=== PATIENT | male | born 1935 | race Caucasian/White ===

== ENCOUNTER → 2016-10-03 | Outpatient (CLI) | payer MEDICARE ==
--- NOTE | 2016-09-29 10:58 | MH ---
cc: AMY BROWN DATE OF ADMISSION 10/03/2016 ADMISSION DIAGNOSIS Cloudy posterior capsule right eye. HISTORY OF PRESENT ILLNESS This 81-year-old white male with a history of low tension glaucoma is status post bilateral cataract surgery with intraocular lens implants and was found to have a cloudy posterior capsule greater in the right eye than the left interfering with his daily activities due to decreased visual acuity. He has therefore elected to have a YAG laser posterior capsulotomy of the right eye at this time. PAST MEDICAL HISTORY The patient has a history of: 1. Hypertension. 2. Prostate problems. 3. Sleep apnea. 4. Cardiac stent. 5. He has also had prostate cancer which has metastasized. PAST SURGICAL HISTORY Includes: 1. Hydrocele. 2. Seed implant. 3. Cardiac stent inserted. 4. Lymph node of the groin which is benign. 5. Skin cancer on the right cheek. 6. Bilateral cataract surgery. MEDICATIONS Daily medications include: 1. Lupron. 2. Bone density shots every 3 months. 3. Citalopram. 4. Clopidogrel. 5. Aspirin. 6. Fenofibrate. 7. Glycopyrrolate. 8. Hydrochlorothiazide. 9. Lisinopril. 10. Loratadine. 11. Leuprolide. 12. Denosumab. 13. Alpha lipoic acid. 14. Calcium plus D. 15. Centrum Silver. 16. Co-Q10. 17. Align. 18. L-lysine. 19. Multiple vitamins. 20. And others. ALLERGIES TERAZOSIN AND SULFAMETHYLDIAZINE, TRIMETHOPRIM WHICH IS TRIMETHOPRIM SULFA. FAMILY HISTORY Positive for father with cataract and father with glaucoma and sons with glaucoma. SOCIAL HISTORY Noncontributory. REVIEW OF SYSTEMS Noncontributory. OCULAR EXAMINATION The patient's visual acuity with correction 20/50 in the right eye and 20/20 in the left. Visual smith are full to confrontation testing. Extraocular muscle exam reveals full versions with orthophoria at distance and near. Pupils are 3 mm equal, round, reactive to light without afferent defect. Anterior segment examination reveals a posterior chamber intraocular lens present bilaterally with a cloudy posterior capsule greater in the right eye than the left. Dermatochalasis of the eyelid skin is present. Intraocular pressure is 14 in the right eye and 10 in the left eye when taking Travatan Z in the left eye. He has since been started on it in both eyes. Dilated fundus exam revealed sharp disk with cup-to-disk ratio 0.8 bilaterally. The macula is clear bilaterally. A posterior vitreous detachment is present bilaterally. There is a laser scar at 4 o'clock in the left fundus. IMPRESSION 1. Cloudy posterior capsule right eye. 2. Pseudophakia both eyes. 3. Low tension glaucoma. 4. Posterior vitreous detachment both eyes. PLAN YAG laser posterior capsulotomy of the right eye through [facility]. MD JO Emery/MALCOLM /5:24 PM /10:54 AM
[~2016-10-03] MED LIST: ACIP20TA19 PO; ALPH200C3 PO; ASCO500C PO; BALANCED SALT SOLN OPHT IRRIG 15 ML BTL ONE; BIOT10004 PO; BRIMONIDINE TARTRATE 0.15% OPHT SOLN 5 ML BTL ONE; CALC500T21 PO; CELE20TA PO; CETI10 PO; CLOP75 PO; CO Q100C9 PO; FENO50TA PO; FLON0.053; FLUOROMETHOLONE 0.25% OPHT SUSP 5 ML BTL ONE; GLYC1TAB27 PO; HYDR-2768 PO; HYPROMELLOSE 0.3 % OPTH GEL 10 GM (0.34 FL OZ) TUBE ONE; L-LY500T4 PO; LISI-363 PO; MAGN250T5 PO; MULT1TAB PO; PHENYLEPHRINE HCL 2.5% OPTH SOLN 2 ML BTL ONE; PROB1TAB PO; PROPARACAINE HCL 0.5% OPHT SOLN 15 ML BTL ONE; ST JTAB PO; TROPICAMIDE 1% OPHT SOLN 15 ML BTL ONE; VITA10004 PO; [UNRECOGNIZED DRUG - OTHER] PO
--- NOTE | 2016-10-05 23:30 | MP ---
cc: AMY TAYLOR DATE OF SURGERY: 10/03/2016 PREOPERATIVE DIAGNOSIS: Cloudy posterior capsule, right POSTOPERATIVE DIAGNOSIS: Cloudy posterior capsule, right eye. OPERATION: YAG laser posterior capsulotomy, right eye. SURGEON: Amy Taylor MD ANESTHESIA: Topical. COMPLICATIONS: None. INDICATIONS: See history and physical previously dictated. PROCEDURE: The patient arrived at [facility]. Blood pressure was 128/55, pulse 55, respirations 16. A drop of Alphagan P and Mydriacyl were instilled in the right eye. The patient was seated at the YAG laser. A drop of Alcaine was instilled in the right eye and a YAG laser posterior capsulotomy lens was placed on the anterior surface of the right cornea. YAG laser posterior capsulotomy was carried out utilizing 57 exposures of 1.7 millijoules. An adequate opening was seen following the procedure. A drop of Alphagan P was instilled topically. The patient was given a prescription for a topical steroid to be used four times per day and has an appointment for follow up on the first postoperative day in my office. The patient left the [facility] in satisfactory condition. MD JO Emery/JESE /12:42 PM /11:07 PM
== END ==
LOC: CSDC 11:19
PROVIDERS: ATTEND Ophthalmology
DX: H26.491 Other secondary cataract, right eye (principal); I10 Essential (primary) hypertension; G47.30 Sleep apnea, unspecified; Z95.5 Presence of coronary angioplasty implant and graft; Z85.46 Personal history of malignant neoplasm of prostate; Z79.82 Long term (current) use of aspirin; Z96.1 Presence of intraocular lens

== ENCOUNTER → 2016-12-26 | Outpatient (CLI) | payer MEDICARE ==
[~2016-12-26] MED LIST changes: -BALANCED SALT SOLN OPHT IRRIG 15 ML BTL ONE; -BRIMONIDINE TARTRATE 0.15% OPHT SOLN 5 ML BTL ONE; -FLUOROMETHOLONE 0.25% OPHT SUSP 5 ML BTL ONE; -HYPROMELLOSE 0.3 % OPTH GEL 10 GM (0.34 FL OZ) TUBE ONE; -PHENYLEPHRINE HCL 2.5% OPTH SOLN 2 ML BTL ONE; -PROPARACAINE HCL 0.5% OPHT SOLN 15 ML BTL ONE; -TROPICAMIDE 1% OPHT SOLN 15 ML BTL ONE
== END ==
LOC: PLAB 10:59
PROVIDERS: ATTEND Urology
DX: C61 Malignant neoplasm of prostate (principal)
CPT/HCPCS: 36415; 84153

== ENCOUNTER → 2017-11-17 | Outpatient (CLI) | payer MEDICARE ==
[2017-11-17 10:01] LABS: ALBUMIN 3.7 GM/DL (3.4-5.0); AST (GOT) 23 U/L (15-37); BICARBONATE 26.4 MEQ/L (21.0-32.0); BLOOD UREA NITROGEN 11 MG/DL (7-18); CHLORIDE 100 MEQ/L (98-107); CREATININE 0.68 MG/DL (0.60-1.30); GLOMERULAR FILTRATION RATE 111 ML/MIN (>89); GLUCOSE,FASTING 91 MG/DL (74-99); SODIUM (NA) 135 MEQ/L (136-145)
[2017-11-17 10:03] LABS: CHOLESTEROL 142 MG/DL (120-200)
[2017-11-17 10:06] LABS: ALKALINE PHOSPHATASE 23 U/L (45-117); ALT (GPT) 15 U/L (12-78); CHOLESTEROL/ HDL RATIO 3.04 RATIO; HDL CHOLESTEROL 46.7 MG/DL (40.0-60.0); LDL CHOLESTEROL 70 MG/DL (0-99); TOTAL BILIRUBIN ADULT 0.5 MG/DL (0.2-1.0); TOTAL PROTEIN 7.6 GM/DL (6.4-8.2); TRIGLYCERIDES 125 MG/DL (42-150)
== END ==
LOC: PLAB 08:08
PROVIDERS: ATTEND Family Medicine
DX: E78.5 Hyperlipidemia, unspecified (principal); I11.9 Hypertensive heart disease without heart failure
CPT/HCPCS: 36415; 80053; 80061

== ENCOUNTER 2018-02-02 10:14 | Emergency (ER) | END 2018-02-02 12:10 | disposition home or self-care (01) | DX: M71.22 Synovial cyst of popliteal space [Baker], left knee (principal); R60.0 Localized edema; I10 Essential (primary) hypertension; E78.00 Pure hypercholesterolemia, unspecified; G47.30 Sleep apnea, unspecified; Z79.01 Long term (current) use of anticoagulants; Z85.46 Personal history of malignant neoplasm of prostate; Z87.19 Personal history of other diseases of the digestive system; Z87.448 Personal history of other diseases of urinary system; Z87.39 Personal history of other diseases of the musculoskeletal system and connective tissue; Z86.69 Personal history of other diseases of the nervous system and sense organs ==

== ENCOUNTER 2018-02-03 19:47 | Emergency (ER) | payer MEDICARE ==
[~2018-02-03] VITALS: Ht 177.8 cm; Wt 81.9 kg
[~2018-02-03 19:47] MED LIST changes: -ACIP20TA19 PO; -ALPH200C3 PO; -ASCO500C PO; +ASPI81CH6 CHEW; -BIOT10004 PO; -CALC500T21 PO; -CELE20TA PO; -CETI10 PO; +CITA20TA4 PO; -CLOP75 PO; +CLOP75TA PO; -CO Q100C9 PO; +DENO120P SQ; +EC-N375T PO; +FENO145T2 PO; -FENO50TA PO; -FLON0.053; -GLYC1TAB27 PO; -HYDR-2768 PO; +HYDR25TA5 PO; -L-LY500T4 PO; +LATA0.002 EACH EYE; -LISI-363 PO; +LISI-515 PO; +LUPR22.5 IM; -MAGN250T5 PO; -MULT1TAB PO; -PROB1TAB PO; +RABE1TAB PO; -ST JTAB PO; -VITA10004 PO; -[UNRECOGNIZED DRUG - OTHER] PO
[2018-02-03 19:54] VITALS: BP 146/66; PULSE 66; RESP 20; TEMP 101.7; O2SAT 96
[2018-02-03 19:59] VITALS: BP 146/66; PULSE 66; RESP 20; TEMP 101.7; O2SAT 96
--- NOTE | 2018-02-03 20:51 | RADRPT ---
EXAM DATE/TIME: 02/03/2018 20:37 [place] COMPARISON: No previous studies available for comparison. INDICATIONS : Fever MEDICAL HISTORY : Carcinoma, prostatic. Hypertension SURGICAL HISTORY : Prostatectomy. Stents. Carpal tunnel ssurgery. ENCOUNTER: Initial ACUITY: 1 week PAIN SCORE: 0/10 LOCATION: Bilateral chest FINDINGS: A single view of the chest demonstrates the lungs to be symmetrically aerated without evidence of mas s, infiltrate or effusion. The cardiomediastinal contours are unremarkable. Osseous structures are intact. CONCLUSION: No acute disease. Simón Poe MD on February 03, 2018 at 20:49 Board Certified Radiologist. This report was verified electronically.
[2018-02-03 21:01] LABS: BILIRUBIN, URINE NEG (NEG); BLOOD, URINE NEG (NEG); GLUCOSE,URINE NEG (NEG); KETONE, URINE NEG (NEG); NITRITE,URINE NEG (NEG); URINE COLOR YELLOW (YELLW/STRAW); URINE LEUKOCYTE ESTERASE NEG (NEG)
[2018-02-03 21:09] LABS: AUTOMATED NEUTROPHIL # 4.1 TH/MM3 (1.8-7.7); BASOPHIL % 0.2 % (0.0-2.0); EOSINOPHIL # 0.1 TH/MM3 (0-0.4); EOSINOPHIL % 1.3 % (0.0-4.0); HEMATOCRIT 26.8 % (39.0-51.0); HEMOGLOBIN 9.4 GM/DL (13.0-17.0); LYMPH % 13.7 % (9.0-44.0); LYMPHOCYTE # 0.8 TH/MM3 (1.0-4.8); MEAN CELL VOLUME 95.7 FL (80.0-100.0); MEAN CORPUSCULAR HEMOGLOBIN 33.7 PG (27.0-34.0); MEAN CORPUSCULAR HGB CONC 35.3 % (32.0-36.0); MEAN PLATELET VOLUME 9.4 FL (7.0-11.0); MONO % 12.2 % (0.0-8.0); MONOCYTE # 0.7 TH/MM3 (0-0.9); NEUT % 72.6 % (16.0-70.0); PLATELET COUNT 211 TH/MM3 (150-450); RED CELL DISTRIBUTION WIDTH 12.9 % (11.6-17.2); WHITE BLOOD COUNT 5.7 TH/MM3 (4.0-11.0)
[2018-02-03 21:27] LABS: AMORPHOUS SEDIMENT, URINE FEW; RBC, URINE 0-3 /hpf (0-3); SQUAMOUS EPITHELIAL CELL URINE 0-5 /hpf (0-5); WBC, URINE 0-2 /hpf (0-5)
[2018-02-03 21:39] VITALS: BP 133/81; PULSE 68; RESP 16; TEMP 98.9; O2SAT 97
[2018-02-03] MEDS ORDERED: CLIN150C14 PO (22:02)
--- NOTE | 2018-02-03 22:05 | PD ---
HPI Chief Complaint: Fever Time Seen by Provider: 20:32 Travel History International Travel<30 days: No Contact w/Intl Traveler<30days: No Traveled to known affect area: No History of Present Illness HPI Patient evaluated in the emergency room 2-3 days ago for left lower extremity edema. Patient reports ultrasound was ruled out. Presents this evening with concerns of fever. Denies any nausea vomiting or diarrhea. Denies any new chest pain shortness of breath urinary or bowel symptoms. Taking fluids well. Denies any sick contacts. PFSH Past Medical History Hx Anticoagulant Therapy: Yes (PLAVIX) Cancer: Yes (Prostate, skin ) High Cholesterol: Yes Chest Pain: No Diabetes: No Endocrine: No Gastrointestinal Disorders: Yes (HX ULCERS, GERD) Glaucoma: No Genitourinary: Yes (PROSTATE CA -- RADIATION 2000, SEED IMPLANT, LEAKING URINE POST) Hepatitis: No Hiatal Hernia: Yes Hypertension: Yes Immune Disorder: No Medical other: Yes (ROSACEA) Musculoskeletal: Yes (ARTHRITIS, BACK PAIN) Neurologic: Yes (PERIPHERAL NEUROPATHY (FEET)) Psychiatric: Yes (ANXIETY) Reproductive: No Respiratory: Yes (SLEEP APNEA/ CPAP) Integumentary: No Thyroid Disease: No Tetanus Vaccination: < 5 Years Past Surgical History Abdominal Surgery: No AICD: No Body Medical Devices: Cardiac stents, radiation seeds Cardiac Surgery: Yes (Stents) Ear Surgery: No Endocrine Surgery: No Eye Surgery: No Genitourinary Surgery: Yes (Prostate seeds, vasectomy ) Gynecologic Surgery: No Joint Replacement: No Oral Surgery: Yes (T&A) Pacemaker: No Thoracic Surgery: No Other Surgery: Yes (Lymph node removal , trigger finger release ) Social History Alcohol Use: No Tobacco Use: No Substance Use: No Allergies-Medications (Allergen,Severity, Reaction): Coded Allergies: Sulfa (Sulfonamide Antibiotics) (Unverified Allergy, Severe, 02/03/18) terazosin (Unverified Allergy, Severe, 02/03/18) Reported Meds & Prescriptions Reported Meds & Active Scripts Active Clindamycin (Clindamycin HCl) 150 Mg Cap 300 Mg PO TID EC-Naprosyn (Naproxen) 375 Mg Tabdr 375 Mg PO BID Reported Rabeprazole (Rabeprazole Sodium) 20 Mg Tab 20 Mg PO DAILY Lisinopril 20 Mg Tab 20 Mg PO DAILY Lupron Depot Inj Kit (Leuprolide (3 Month) Inj Kit) 22.5 Mg Kit 22.5 Mg IM Q84D Latanoprost Opth Drops (Latanoprost) 0.005% Drops 1 Drop EACH EYE HS Refrigerate until opened. Hydrochlorothiazide 25 Mg Tab 25 Mg PO DAILY Fenofibrate 145 Mg Tab 145 Mg PO DAILY Aspirin Low Dose (Aspirin) 81 Mg Chew 81 Mg CHEW DAILY Xgeva Inj (Denosumab) 120 Mg/1.7 Ml (70 Mg/Ml) Inj 120 Mg SQ [id number] Clopidogrel (Clopidogrel Bisulfate) 75 Mg Tab 75 Mg PO DAILY Citalopram (Citalopram Hydrobromide) 20 Mg Tab 20 Mg PO DAILY Review of Systems General / Constitutional: Positive: Fever Eyes: No: Visual changes HENT: No: Headaches Cardiovascular: No: Chest Pain or Discomfort Respiratory: No: Shortness of Breath Gastrointestinal: No: Abdominal Pain Genitourinary: No: Dysuria Musculoskeletal: No: Pain Skin: No Rash Neurologic: No: Weakness Psychiatric: No: Depression Endocrine: No: Polydipsia Hematologic/Lymphatic: No: Easy Bruising Physical Exam Narrative GENERAL: Well-nourished, well-developed patient. SKIN: Focused skin assessment warm/dry. HEAD: Normocephalic. EYES: No scleral icterus. No injection or drainage. NECK: Supple, trachea midline. No JVD or lymphadenopathy. CARDIOVASCULAR: Regular rate and rhythm without murmurs, gallops, or rubs. RESPIRATORY: Breath sounds equal bilaterally. No accessory muscle use. GASTROINTESTINAL: Abdomen soft, non-tender, nondistended. MUSCULOSKELETAL: No cyanosis, or edema. BACK: Nontender without obvious deformity. No CVA tenderness. Left lower extremity is edema and tenderness of the tibial aspect with mild erythema, no drainage or weepage Data Data Last Documented VS Vital Signs Date Time Temp Pulse Resp B/P (MAP) Pulse Ox O2 Delivery O2 Flow Rate FiO2 02/03/18 22:15 02/03/18 21:39 98.9 68 16 97 Room Air Orders Orders Urinalysis - C+S If Indicated (02/03/18 20:32) Complete Blood Count With Diff (02/03/18 20:32) Chest, Single Ap (02/03/18 ) Clindamycin Inj (Cleocin Inj) (02/03/18 22:15) Labs Laboratory Tests Test 02/03/18 20:47 White Blood Count 5.7 TH/MM3 Red Blood Count 2.80 MIL/MM3 Hemoglobin 9.4 GM/DL Hematocrit 26.8 % Mean Corpuscular Volume 95.7 FL Mean Corpuscular Hemoglobin 33.7 PG Mean Corpuscular Hemoglobin Concent 35.3 % Red Cell Distribution Width 12.9 % Platelet Count 211 TH/MM3 Mean Platelet Volume 9.4 FL Neutrophils (%) (Auto) 72.6 % Lymphocytes (%) (Auto) 13.7 % Monocytes (%) (Auto) 12.2 % Eosinophils (%) (Auto) 1.3 % Basophils (%) (Auto) 0.2 % Neutrophils # (Auto) 4.1 TH/MM3 Lymphocytes # (Auto) 0.8 TH/MM3 Monocytes # (Auto) 0.7 TH/MM3 Eosinophils # (Auto) 0.1 TH/MM3 Basophils # (Auto) 0.0 TH/MM3 CBC Comment DIFF FINAL Differential Comment Urine Color YELLOW Urine Turbidity CLEAR Urine pH 8.0 Urine Specific Bozman 1.010 Urine Protein TRACE mg/dL Urine Glucose (UA) NEG mg/dL Urine Ketones NEG mg/dL Urine Occult Blood NEG Urine Nitrite NEG Urine Bilirubin NEG Urine Urobilinogen 0.2 MG/DL Urine Leukocyte Esterase NEG Urine RBC 0-3 /hpf Urine WBC 0-2 /hpf Urine Squamous Epithelial Cells 0-5 /hpf Urine Amorphous Sediment FEW Microscopic Urinalysis Comment CULT NOT INDICATED MDM Medical Decision Making Medical Screen Exam Complete: Yes Emergency Medical Condition: Yes Differential Diagnosis Fever of unknown origin, UTI, cellulitis, viral infection Narrative Course Assessment plan discussed the patient at bedside. Urinalysis and CBC within normal limits. Last 72 hours Impressions Chest X-Ray 02/03/18 0000 Signed Impressions: Service Date/Time: Saturday, February 03, 2018 20:37 - CONCLUSION: No acute disease. Simón Poe MD Diagnosis Primary Impression: Cellulitis and abscess of left leg Additional Impression: Fever Qualified Codes: R50.9 - Fever, unspecified Patient Instructions: General Instructions Additional Instructions: Antibiotics as prescribed, left lower extremity elevated, Tylenol or Motrin for fever, follow-up with PCP, return to emerge from with any onset of new symptoms. Med/Other Pt SpecificInfo: Prescription(s) given Scripts Clindamycin (Clindamycin) 150 Mg Cap 300 MG PO TID for Infection, #60 CAP 0 Refills Prov: Mook Umanzor MD 02/03/18 Disposition: 01 DISCHARGE HOME Condition: Good Mook Umanzor MD February 03, 2018 22:05
[2018-02-03] MEDS ORDERED: CLINDAMYCIN PHOS 600 MG/4 ML VIAL IM ONE (22:15)
== END 2018-02-03 22:56 | disposition home or self-care (01) ==
LOC: PHED 19:47
DX: L02.416 Cutaneous abscess of left lower limb (principal); L03.116 Cellulitis of left lower limb; R50.9 Fever, unspecified; E78.00 Pure hypercholesterolemia, unspecified; K21.9 Gastro-esophageal reflux disease without esophagitis; I10 Essential (primary) hypertension; G47.30 Sleep apnea, unspecified; R60.0 Localized edema
CPT/HCPCS: 71045; 81001; 85025; 96372

== ENCOUNTER 2018-06-18 12:19 | Inpatient (IN) ==
--- NOTE | 2018-06-18 13:38 | ED ---
HPI General Chief Complaint: Recheck/Abnormal Lab/Rx Stated Complaint: doctor sent Time Seen by Provider: 06/18/18 13:12 Source: patient Mode of arrival: ambulatory Limitations: no limitations History of Present Illness HPI narrative: 83-year-old male with PMH of CAD status post stenting, prostate cancer on Plavix presents to the ED for evaluation of 2-day history of dyspnea on exertion. Patient states that when he woke up yesterday he felt a little dizzy. He sat on the side of the bed for a few moments, dizziness resolved and he was able to go about his normal activities. He states that he has had intermittent "some kind of feeling in my chest" and palpitations. No chest discomfort currently. He denies nausea, vomiting, diaphoresis. He denies headache, vision changes, fever, chills, cough, changes in bowel habits, dysuria , unilateral weakness, difficulties with speech, recent period of immobilization , cigarette smoking. He states that he swims 80+ laps daily, has not swam in the last couple days. He states that he went to a checkup with Dr. Garces is today and was sent for further evaluation. Related Data Home Medications Medication Instructions Recorded Confirmed aspirin [Aspir-81] 81 mg PO DAILY 06/18/18 06/18/18 cholecalciferol (vitamin D3) 50,000 unit PO QWEEK 06/18/18 06/18/18 [Vitamin D3] citalopram 20 mg PO DAILY 06/18/18 06/18/18 clopidogrel 75 mg PO DAILY 06/18/18 06/18/18 denosumab 120 mg SUBCUT Q4W 06/18/18 06/18/18 fenofibrate 150 mg PO DAILY 06/18/18 06/18/18 hydrochlorothiazide 25 mg PO DAILY 06/18/18 06/18/18 loratadine 10 mg PO DAILY 06/18/18 06/18/18 losartan 50 mg PO DAILY 06/18/18 06/18/18 rabeprazole 20 mg PO DAILY 06/18/18 06/18/18 Allergies Allergy/AdvReac Type Severity Reaction Status Date / Time Sulfa (Sulfonamide Allergy Severe Fainting Verified 06/18/18 13:06 Antibiotics) terazosin Allergy Severe Burning Verified 06/18/18 13:06 Review of Systems ROS: all other systems reviewed are negative [facility] Medical History Medical History Anemia (Acute) Hypercholesteremia (Acute) Hypertension (Acute) Prostate cancer (Acute) Surgical History Surgical History Hx of cardiac catheterization (Acute) Hx of heart artery stent (Acute) Social History Social History Substance History: No History of Abuse Smoking Status: Former smoker How Often Do You Have a Drink Containing Alcohol: Never Recent Travel in [facility] within the Last 8 Weeks: No Recent Out of Country Travel within the Last 8 Weeks: No Immunization History Tetanus Immunization: <5 Years Hx Influenza Vaccine This Season: Yes Exam Narrative Exam Narrative: GENERAL: Well-nourished, well-developed, pleasant white male in no acute distress. SKIN: Focused skin assessment warm/dry. HEAD: Atraumatic. Normocephalic. EYES: Pupils equal and round. No scleral icterus. No injection or drainage. ENT: No nasal bleeding or discharge. Mucous membranes pink and moist. NECK: Trachea midline. No JVD. CARDIOVASCULAR: Irregular rate and rhythm. No murmur appreciated. RESPIRATORY: No accessory muscle use. Clear to auscultation. Breath sounds equal bilaterally. GASTROINTESTINAL: Abdomen soft, non-tender, nondistended. Hepatic and splenic margins not palpable. MUSCULOSKELETAL: No obvious deformities. No clubbing. No cyanosis. No edema. NEUROLOGICAL: Awake and alert. No obvious cranial nerve deficits. Motor grossly within normal limits. Normal speech. PSYCHIATRIC: Appropriate mood and affect; insight and judgment normal. Course Initial Documented Vital Signs Temperature 98.0 F 06/18/18 12:34 Pulse Rate 41 L 06/18/18 12:34 Respiratory Rate 16 06/18/18 12:34 Blood Pressure 183/77 H 06/18/18 12:34 Pulse Oximetry 100 06/18/18 12:34 Last Documented Vital Signs Temperature 98.2 F 06/18/18 16:54 Pulse Rate 35 L 06/18/18 16:54 Respiratory Rate 16 06/18/18 16:30 Blood Pressure 134/76 06/18/18 16:54 Pulse Oximetry 98 06/18/18 16:30 Medical Decision Making MDM Narrative Medical decision making narrative: 83-year-old male with PMH of CAD status post stenting, prostate cancer on Plavix presents to the ED for evaluation of 2-day history of dyspnea on exertion. Patient endorses palpitations, no chest discomfort on arrival. Vitals reviewed. Heart rate between 40 and mid 50s. EKG concerning for third-degree heart block. CTA with no evidence of PE. Dr. Treadwell spoke with Dr. Garces who requested the patient be admitted to the hospital, plans pacemaker insertion tomorrow. I discussed this plan with the patient who is agreeable. I spoke with Dr. Lester who agrees to accept the patient to the medicine service. Please see medicine and cardiac notes for disposition. Medical Screen Exam Complete: Yes Emergency Medical Condition: Yes Differential Diagnosis Differential Diagnosis: heart block versus ACS versus CHF versus PE versus Lab Data Result diagrams: 06/18/18 13:21 06/18/18 13:21 Lab Results 06/18/18 06/18/18 06/18/18 Range/Units 13:21 13:21 13:21 WBC 4.9 (4.0-11.0) th/mm3 RBC 3.43 L (4.50-5.90) mil/mm3 Hgb 11.4 L (13.0-17.0) gm/dL Hct 33.8 L (39.0-51.0) % MCV 98.5 (80.0-100.0) fL MCH 33.3 (27.0-34.0) pg MCHC 33.8 (32.0-36.0) % RDW 12.8 (11.6-17.2) % Plt Count 227 (150-450) th/mm3 MPV 10.1 (7.0-11.0) fL Neut % (Auto) 61.8 (16.0-70.0) % Lymph % (Auto) 23.9 (9.0-44.0) % Eddy % (Auto) 12.7 H (0.0-8.0) % Eos % (Auto) 1.2 (0.0-4.0) % Baso % (Auto) 0.4 (0.0-2.0) % Neut # (Auto) 3.0 (1.8-7.7) th/mm3 Lymph # (Auto) 1.2 (1.0-4.8) th/mm3 Eddy # (Auto) 0.6 (0.0-0.9) th/mm3 Eos # (Auto) 0.1 (0.0-0.4) th/mm3 Baso # (Auto) 0.0 (0.0-0.2) th/mm3 WBC Differential . Differential Comment Auto diff final PT (9.8-11.6) sec INR Ratio D-Dimer Quant (PE/DVT) 0.39 (0.00-0.50) mg/L FEU Sodium 136 (136-145) meq/L Potassium 3.6 (3.5-5.1) meq/L Chloride 103 (98-107) meq/L Carbon Dioxide 23.8 (21.0-32.0) meq/L Anion Gap 9 (5-15) meq/L BUN 19 H (7-18) mg/dL Creatinine 0.92 (0.60-1.30) mg/dL Estimated GFR 78 L (>89) mL/min Random Glucose 103 (74-106) mg/dL Calcium 9.4 (8.5-10.1) mg/dL Total Bilirubin 0.4 (0.2-1.0) mg/dL AST 19 (15-37) U/L ALT 18 (12-78) U/L Alkaline Phosphatase 22 L (45-117) U/L Troponin I 0.02 (0.02-0.05) ng/mL B-Natriuretic Peptide (0-100) pg/mL Total Protein 7.7 (6.4-8.2) g/dL Albumin 3.5 (3.4-5.0) g/dL Urine Color (Yellw/Straw) Urine Clarity (Clear) Urine pH (5.0-8.5) Ur Specific [place] (1.002-1.035) Urine Protein (Neg-Trace) mg/dL Urine Glucose (UA) (Negative) mg/dL Urine Ketones (Negative) mg/dL Urine Occult Blood (Negative) Urine Nitrate (Negative) Urine Bilirubin (Negative) Urine Urobilinogen (Less than 2) mg/dL Ur Leukocyte Esterase (Negative) Urine RBC (0-3) /hpf Urine WBC (0-5) /hpf Micro UA Comment Ur Microscopic Review Urine Culture Comments 06/18/18 06/18/18 06/18/18 Range/Units 13:21 13:21 14:07 WBC (4.0-11.0) th/mm3 RBC (4.50-5.90) mil/mm3 Hgb (13.0-17.0) gm/dL Hct (39.0-51.0) % MCV (80.0-100.0) fL MCH (27.0-34.0) pg MCHC (32.0-36.0) % RDW (11.6-17.2) % Plt Count (150-450) th/mm3 MPV (7.0-11.0) fL Neut % (Auto) (16.0-70.0) % Lymph % (Auto) (9.0-44.0) % Eddy % (Auto) (0.0-8.0) % Eos % (Auto) (0.0-4.0) % Baso % (Auto) (0.0-2.0) % Neut # (Auto) (1.8-7.7) th/mm3 Lymph # (Auto) (1.0-4.8) th/mm3 Eddy # (Auto) (0.0-0.9) th/mm3 Eos # (Auto) (0.0-0.4) th/mm3 Baso # (Auto) (0.0-0.2) th/mm3 WBC Differential Differential Comment PT 10.9 (9.8-11.6) sec INR 1.1 Ratio D-Dimer Quant (PE/DVT) (0.00-0.50) mg/L FEU Sodium (136-145) meq/L Potassium (3.5-5.1) meq/L Chloride (98-107) meq/L Carbon Dioxide (21.0-32.0) meq/L Anion Gap (5-15) meq/L BUN (7-18) mg/dL Creatinine (0.60-1.30) mg/dL Estimated GFR (>89) mL/min Random Glucose (74-106) mg/dL Calcium (8.5-10.1) mg/dL Total Bilirubin (0.2-1.0) mg/dL AST (15-37) U/L ALT (12-78) U/L Alkaline Phosphatase (45-117) U/L Troponin I (0.02-0.05) ng/mL B-Natriuretic Peptide 492 H (0-100) pg/mL Total Protein (6.4-8.2) g/dL Albumin (3.4-5.0) g/dL Urine Color Yellow (Yellw/Straw) Urine Clarity Clear (Clear) Urine pH 7.0 (5.0-8.5) Ur Specific [place] 1.005 (1.002-1.035) Urine Protein Negative (Neg-Trace) mg/dL Urine Glucose (UA) Negative (Negative) mg/dL Urine Ketones Negative (Negative) mg/dL Urine Occult Blood Negative (Negative) Urine Nitrate Negative (Negative) Urine Bilirubin Negative (Negative) Urine Urobilinogen Less than 2 (Less than 2) mg/dL Ur Leukocyte Esterase Negative (Negative) Urine RBC Less than 1 (0-3) /hpf Urine WBC 1 (0-5) /hpf Micro UA Comment Culture not ind Ur Microscopic Review Not Reportable Urine Culture Comments Culture not ind Imaging Data Radiologist's impression: Chest X-Ray 06/18/18 13:13 CONCLUSION: No acute cardiopulmonary disease. Chest CTA 06/18/18 13:15 CONCLUSION: 1. Negative for central pulmonary emboli. Discharge Plan Discharge Disposition Patient Disposition: 30 Still Patient Physicians Team ED Provider: Rob Treadwell ED Midlevel Provider: Jeri Hicks Primary Care Provider: Holland Loza Attending Provider: Samm Lester Other Providers: Dylan Garces Discharge Interventions Interventions: ED Discharge Assessment Last Done: 06/18/18 16:47 Vital Signs Last Done: 06/18/18 16:54 Status ED Status: Admitted Patient
[2018-06-18 13:51] LABS: Baso % (Auto) 0.4 % (0.0-2.0); Eos # (Auto) 0.1 th/mm3 (0.0-0.4); Eos % (Auto) 1.2 % (0.0-4.0); Hematocrit 33.8 % (39.0-51.0); Hemoglobin 11.4 gm/dL (13.0-17.0); Lymph # (Auto) 1.2 th/mm3 (1.0-4.8); Lymph % (Auto) 23.9 % (9.0-44.0); Mean Corpuscular HGB Conc 33.8 % (32.0-36.0); Mean Corpuscular Hemoglobin 33.3 pg (27.0-34.0); Mean Corpuscular Volume 98.5 fL (80.0-100.0); Mean Platelet Volume 10.1 fL (7.0-11.0); Mono # (Auto) 0.6 th/mm3 (0.0-0.9); Mono % (Auto) 12.7 % (0.0-8.0); Neut % (Auto) 61.8 % (16.0-70.0); Platelet Count 227 th/mm3 (150-450); Red Blood Count 3.43 mil/mm3 (4.50-5.90); Red Cell Distribution Width 12.8 % (11.6-17.2); White Blood Count 4.9 th/mm3 (4.0-11.0)
[2018-06-18 14:08] LABS: INR 1.1 Ratio; Prothrombin Time 10.9 sec (9.8-11.6)
--- NOTE | 2018-06-18 14:08 | XR ---
EXAM DATE: 06/18/2018 1:13 PM EDT AGE/SEX: 83 years / Male INDICATIONS: Short of breath and dizziness. CLINICAL DATA: This is the patient's initial encounter. Patient reports that signs and symptoms have been present for 2 days and indicates a pain score of 0/10. MEDICAL/SURGICAL HISTORY: None. None. COMPARISON: PO, CHEST SINGLE AP, 02/03/2018. . FINDINGS: A single AP view of the chest demonstrates the lungs to be symmetrically aerated without evidence of mass, infiltrate or effusion. The cardiomediastinal contours are unremarkable. Osseous structures a re intact. CONCLUSION: No acute cardiopulmonary disease. Electronically signed by: Magan Moreno MD 06/18/2018 2:07 PM EDT
[2018-06-18 14:14] LABS: Albumin 3.5 g/dL (3.4-5.0); Anion Gap 9 meq/L (5-15); Aspartate Aminotransferase 19 U/L (15-37); Blood Urea Nitrogen 19 mg/dL (7-18); Calcium 9.4 mg/dL (8.5-10.1); Carbon Dioxide 23.8 meq/L (21.0-32.0); Chloride 103 meq/L (98-107); Glomerular Filtration Rate 78 mL/min (>89); Glucose,Random 103 mg/dL (74-106); Potassium 3.6 meq/L (3.5-5.1); Sodium 136 meq/L (136-145)
[2018-06-18 14:16] LABS: Alanine Aminotransferase 18 U/L (12-78)
[2018-06-18 14:20] LABS: Alkaline Phosphatase 22 U/L (45-117); Total Protein 7.7 g/dL (6.4-8.2); Troponin I 0.02 ng/mL (0.02-0.05)
[2018-06-18 14:33] LABS: Bilirubin,Urine Negative (Negative); Clarity,Urine Clear (Clear); Color,Urine Yellow (Yellw/Straw); Glucose,Urine (UA) Negative (Negative); Leukocyte Esterase,Urine Negative (Negative); Nitrite,Urine Negative (Negative); Specific Gravity,Urine 1.005 (1.002-1.035)
--- NOTE | 2018-06-18 15:21 | CT ---
EXAM DATE: 06/18/2018 2:41 PM EDT AGE/SEX: 83 years / Male INDICATIONS: Shortness of breath. History of prostate cancer. CLINICAL DATA: This is the patient's initial encounter. Patient reports that signs and symptoms have been present for 1 day and indicates a pain score of 5/10. MEDICAL/SURGICAL HISTORY: Hypertension. Cardiovascular disease. None. RADIATION DOSE: 18.18 CTDI (mGy) COMPARISON: No prior exams available for comparison. TECHNIQUE: Volumetric scanning was performed using a multi-row detector CT scanner during bolus infu leslie of 74 ml Omnipaque 350 (iohexol) nonionic water-soluble contrast as a single exam dose. The nikko a was post processed with a variety of visualization algorithms including full volume maximum intensi ty projection and sliding thin slab reformation. Using automated exposure control and adjustment of t he mA and/or kV according to patient size, radiation dose was kept as low as reasonably achievable to obtain optimal diagnostic quality images. DICOM format image data is available electronically for r eview and comparison. FINDINGS: Pulmonary Arteries: No filling defects are seen in the pulmonary arteries out to the subsegmental ve ssels. The left and right pulmonary arteries are normal in diameter. Lung: No infiltrates seen. Effusion: None. Mediastinum: No evidence of mediastinal or hilar adenopathy. Apparent LAD stent. Other: The axilla is unremarkable. Upper abdominal contents unremarkable. CONCLUSION: 1. Negative for central pulmonary emboli. Electronically signed by: Corby Phillips MD 06/18/2018 3:19 PM EDT
[2018-06-18] MEDS ORDERED: Bisacodyl 10 MG Supp RECTAL PRN (15:55)
[2018-06-18] MEDS ORDERED: Chlorhexidine Gluconate 2% 1 Pack (2 Cloths) TOPICAL SCH (18:00)
[2018-06-18] MEDS ORDERED: Vancomycin Inj 1,000 MG in Sodium Chlor 0.9% Inj 250 ML IV.SIG SCH (18:00)
[2018-06-18] MEDS ORDERED: Mupirocin 2% Nasal Oint Topical Syringe EACH NARE SCH (18:00)
[2018-06-18] MEDS ORDERED: ceFAZolin 2 GM Premix Inj 2 GM/50 ML PIGGYBACK IV.SIG SCH (18:00)
--- NOTE | 2018-06-18 18:18 | P.CONCA ---
History of Present Illness Service: Cardiology Reason for Consult: Heart block Primary Care Provider: Holland Loza MD History of Present Illness: Pleasant 83-year-old male well-known to our practice, with a past cardiac history of ASHD with stent to the LAD and RCA, hyperlipidemia, V. tach, bradycardia, right bundle branch block, and hypertension. He also has metastatic prostate cancer and is followed by Dr. Graham. He had a nuclear stress test in September 1999 18+ moderate risk study. Patient denied any chest pain. Patient presented to office this AM with complaints dizziness, fatigue and SOB. He reports that symptoms started yesterday when he woke up, felt very dizzy, lightheaded, and short of breath. Reports having significant shortness of breath when walking across the parking lot today. EKG showed heart block, pt was sent to ER. Patient had CTA in the ER that ruled out pulmonary embolus. All options discussed in detail with patient, will plan to proceed with pacemaker placement tomorrow morning. Patient understands the risk of procedure and has elected to go forward. Review of Systems Constitutional: Reports lack of energy, Reports weakness Cardiovascular: Reports shortness of breath, Reports shortness of breath with activity Respiratory: Reports shortness of breath Musculoskeletal: Reports muscle weakness Neurologic: Reports dizziness, Reports weakness PMFSH - History History Provided By: Patient - Medical History Medical History: Medical History (Last Reviewed 06/18/18 @ 17:17 by FABIOLA Alberto) Anemia Hypercholesteremia Hypertension Prostate cancer - Surgical History Surgical History: Surgical History (Last Reviewed 06/18/18 @ 17:17 by FABIOLA Alberto) Hx of cardiac catheterization Hx of heart artery stent - Tobacco History Tobacco Use In Past 30 Days: No Smoking Status: Former smoker - Alcohol History How Often Do You Have a Drink Containing Alcohol: Never - Substance Use History Substance History: No History of Abuse - Travel History Recent Travel in the [place] Within the Last 8 Weeks: No Recent Travel Out of the Country Within the Last 8 Weeks: No - Immunization History Tetanus Immunization: <5 Years Hx Influenza Vaccine This Season: Yes Medications and Allergies Allergies Allergy/AdvReac Type Severity Reaction Status Date / Time Sulfa (Sulfonamide Allergy Severe Fainting Verified 06/18/18 13:06 Antibiotics) terazosin Allergy Severe Burning Verified 06/18/18 13:06 Home Medications Medication Instructions Recorded Confirmed Type aspirin [Aspir-81] 81 mg PO DAILY 06/18/18 06/18/18 History cholecalciferol (vitamin D3) 50,000 unit PO QWEEK 06/18/18 06/18/18 History [Vitamin D3] citalopram 20 mg PO DAILY 06/18/18 06/18/18 History clopidogrel 75 mg PO DAILY 06/18/18 06/18/18 History denosumab 120 mg SUBCUT Q4W 06/18/18 06/18/18 History fenofibrate 150 mg PO DAILY 06/18/18 06/18/18 History hydrochlorothiazide 25 mg PO DAILY 06/18/18 06/18/18 History loratadine 10 mg PO DAILY 06/18/18 06/18/18 History losartan 50 mg PO DAILY 06/18/18 06/18/18 History rabeprazole 20 mg PO DAILY 06/18/18 06/18/18 History Active Medications: Active Medications Al Hydroxide/Mg Hydroxide (Milk Of Magnesia Liq) 30 ml PO Q12H PRN PRN Reason: Mild Constipation Bisacodyl (Dulcolax Supp) 10 mg RECTAL DAILY PRN PRN Reason: SEVERE CONSITIPATION Chlorhexidine Gluconate (Chlorhexidine 2% Cloth) 3 pack TOPICAL PATHOLOGY TECHNICIAN [facility] Stop: 06/21/18 17:59 Citalopram Hydrobromide (Celexa) 20 mg PO DAILY [facility] Enalaprilat (Vasotec Inj) 1.25 mg IV.PUSH Q6H PRN PRN Reason: SBP>160, DBP>90 Fenofibrate (Tricor) 145 mg PO DAILY [facility] Cefazolin Sodium/Dextrose (Ancef 2 Gm Premix Inj) 2 gm in 50 mls @ 100 mls/hr IV.SIG PATHOLOGY TECHNICIAN [facility] Stop: 06/21/18 18:01 Sodium Chloride (Ns Inj) 1,000 mls @ 30 mls/hr IV.CONT .Q24H [facility] Vancomycin HCl 1,000 mg/ (Sodium Chloride) 250 mls @ 250 mls/hr IV.SIG PATHOLOGY TECHNICIAN [facility] Stop: 06/21/18 18:01 Lactulose (Lactulose Liq) 30 ml PO DAILY PRN PRN Reason: SEVERE CONSITIPATION Losartan Potassium (Cozaar) 50 mg PO DAILY [facility] Mupirocin (Bactroban 2% Nasal Oint) 1 applicatio EACH NARE PATHOLOGY TECHNICIAN [facility] Stop: 06/21/18 17:59 Pantoprazole Sodium (Protonix) 40 mg PO DAILY [facility] Povidone Iodine (Betadine 5% Antisepsis Kit) 1 applicatio EACH NARE PATHOLOGY TECHNICIAN [facility] Stop: 06/21/18 17:59 Sennosides (Senokot) 17.2 mg PO Q12H PRN PRN Reason: Moderate Constipation Exam Vital signs: Vital Signs 06/18/18 12:34 06/18/18 13:06 06/18/18 13:16 Temperature 98.0 F Pulse Rate 41 L 41 L Respiratory Rate 16 25 H Blood Pressure 183/77 H 162/68 H Pulse Oximetry 100 97 98 06/18/18 13:30 06/18/18 16:19 06/18/18 16:30 Temperature 98.2 F Pulse Rate 49 L 44 L Respiratory Rate 20 16 Blood Pressure 134/76 Pulse Oximetry 100 96 98 06/18/18 16:54 Temperature 98.2 F Pulse Rate 35 L Respiratory Rate Blood Pressure 134/76 Pulse Oximetry Intake & Output 06/17/18 06/18/18 06/18/18 18:59 06:59 18:59 Weight 79.379 kg - Constitutional no acute distress - Routine HEENT Exam Head: Present: atraumatic Eye: Present: normal accommodation ENT: Present: mucous membranes moist - Routine Neck Exam Present: supple - Routine Respiratory Exam Present: CTA bilaterally - Routine Cardiovascular Exam Present: bradycardia - Routine Abdominal Exam Present: soft - Routine Skin Exam Present: intact - Routine Neurological Exam Present: alert, oriented X3 Results 06/19/18 01:43 06/19/18 01:43 Cardiac Enzymes 06/18/18 06/18/18 Range/Units 13:21 13:21 AST 19 (15-37) U/L Troponin I 0.02 (0.02-0.05) ng/mL B-Natriuretic Peptide 492 H (0-100) pg/mL Coagulation 06/18/18 06/18/18 Range/Units 13:21 13:21 PT 10.9 (9.8-11.6) sec B-Natriuretic Peptide 492 H (0-100) pg/mL CBC 06/18/18 Range/Units 13:21 WBC 4.9 (4.0-11.0) th/mm3 RBC 3.43 L (4.50-5.90) mil/mm3 Hgb 11.4 L (13.0-17.0) gm/dL Hct 33.8 L (39.0-51.0) % Plt Count 227 (150-450) th/mm3 Neut # (Auto) 3.0 (1.8-7.7) th/mm3 Lymph # (Auto) 1.2 (1.0-4.8) th/mm3 [place] # (Auto) 0.6 (0.0-0.9) th/mm3 Eos # (Auto) 0.1 (0.0-0.4) th/mm3 Baso # (Auto) 0.0 (0.0-0.2) th/mm3 Comprehensive Metabolic Panel 06/18/18 Range/Units 13:21 Sodium 136 (136-145) meq/L Potassium 3.6 (3.5-5.1) meq/L Chloride 103 (98-107) meq/L Carbon Dioxide 23.8 (21.0-32.0) meq/L BUN 19 H (7-18) mg/dL Creatinine 0.92 (0.60-1.30) mg/dL Calcium 9.4 (8.5-10.1) mg/dL AST 19 (15-37) U/L ALT 18 (12-78) U/L Alkaline Phosphatase 22 L (45-117) U/L Total Protein 7.7 (6.4-8.2) g/dL Albumin 3.5 (3.4-5.0) g/dL Intake and Output 06/18/18 06/18/18 06/18/18 06:59 14:59 22:59 Other: Weight 79.379 kg Patient Weight 06/19/18 06:59 Weight 79.379 kg - Imaging and Cardiology Imaging: Impressions Chest X-Ray 06/18/18 13:13 CONCLUSION: No acute cardiopulmonary disease. Chest CTA 06/18/18 13:15 CONCLUSION: 1. Negative for central pulmonary emboli. EKG interpretations - Blocks, axis, hypertrophy, ST abn AV and intraventricular conduction: advanced AV block Assessment and Plan - Plan Assessment Heart block Plan Will proceed with pacemaker placement in AM. Hold ASA and Plavix. Keep NPO after midnight. Pt understands risks and elects to proceed The patient was seen and evaluated by Dr. Garces who completed face to face encounter and physical exam The exam, history, and the medical decision-making described in the above note were completed with the assistance of the mid-level provider. I reviewed and agree with the findings presented. I attest that I had a [id number] encounter with the patient on the same day, and personally performed and documented my assessment and findings in the medical record.. Site marked with marker and risks of pnuemothorax etc reviewed in detail Code Status: Full Code Discussed Condition With: NurseCristine RN
[2018-06-18] MEDS: Sod Chloride 0.9% Inj 1,000 ML IV.CONT SCH (18:39)
--- NOTE | 2018-06-18 19:23 | P.HPIM ---
History of Present Illness Primary Care Physician: Holland Loza MD History of Present Illness: 83-year-old male with a history of coronary artery disease with stenting, metastatic prostate cancer on hormone therapy, hyperlipidemia, V. tach, right bundle branch block, hypertension who presents with a 2 day history of fatigue, shortness of breath with exertion. He denies any chest pain. He denies any fevers, chills, chest pain, shortness of breath. He does report some loose bowel movements which she has attributed to recent vitamin D therapy. family history reviewed and found to be currently noncontributory. Inpatient Certification: I certify that the inpatient services were ordered in accordance with Medicare regulations governing the order. This includes certification that hospital inpatient services are reasonable and necessary and in the case of services not specified as inpatient-only under 42 CFR 419.22(n), that they are appropriately provided as inpatient services in accordance to with the 2-midnight benchmark under 43 CFR 412.3(e) Estimated Total Length of Stay (Days): 3 Plans for Post Hospital Care: Home Review of Systems All other systems reviewed negative except as stated in HPI PMFSH - History History Provided By: Patient - Medical History Medical History: Medical History (Last Reviewed 06/18/18 @ 17:17 by FABIOLA Alberto) Anemia Hypercholesteremia Hypertension Prostate cancer - Surgical History Surgical History: Surgical History (Last Reviewed 06/18/18 @ 17:17 by FABIOLA Alberto) Hx of cardiac catheterization Hx of heart artery stent - Tobacco History Tobacco Use In Past 30 Days: No Smoking Status: Former smoker - Alcohol History How Often Do You Have a Drink Containing Alcohol: Never - Substance Use History Substance History: No History of Abuse - Travel History Recent Travel in the [place] Within the Last 8 Weeks: No Recent Travel Out of the Country Within the Last 8 Weeks: No - Immunization History Tetanus Immunization: <5 Years Hx Influenza Vaccine This Season: Yes Medications and Allergies Active Medications: Active Medications Al Hydroxide/Mg Hydroxide (Milk Of Magnbrandie Liq) 30 ml PO Q12H PRN PRN Reason: Mild Constipation Bisacodyl (Dulcolax Supp) 10 mg RECTAL DAILY PRN PRN Reason: SEVERE CONSITIPATION Chlorhexidine Gluconate (Chlorhexidine 2% Cloth) 3 pack TOPICAL ACCOUNTING MANAGER CONTROLLER [facility] Stop: 06/21/18 17:59 Citalopram Hydrobromide (Celexa) 20 mg PO DAILY [facility] Enalaprilat (Vasotec Inj) 1.25 mg IV.PUSH Q6H PRN PRN Reason: SBP>160, DBP>90 Fenofibrate (Tricor) 145 mg PO DAILY [facility] Cefazolin Sodium/Dextrose (Ancef 2 Gm Premix Inj) 2 gm in 50 mls @ 100 mls/hr IV.SIG ACCOUNTING MANAGER CONTROLLER [facility] Stop: 06/21/18 18:01 Sodium Chloride (Ns Inj) 1,000 mls @ 30 mls/hr IV.CONT .Q24H [facility] Last Admin: 06/18/18 18:39 Dose: Not Given Vancomycin HCl 1,000 mg/ (Sodium Chloride) 250 mls @ 250 mls/hr IV.SIG ACCOUNTING MANAGER CONTROLLER [facility] Stop: 06/21/18 18:01 Lactulose (Lactulose Liq) 30 ml PO DAILY PRN PRN Reason: SEVERE CONSITIPATION Losartan Potassium (Cozaar) 50 mg PO DAILY [facility] Mupirocin (Bactroban 2% Nasal Oint) 1 applicatio EACH NARE ACCOUNTING MANAGER CONTROLLER [facility] Stop: 06/21/18 17:59 Pantoprazole Sodium (Protonix) 40 mg PO DAILY [facility] Povidone Iodine (Betadine 5% Antisepsis Kit) 1 applicatio EACH NARE ACCOUNTING MANAGER CONTROLLER [facility] Stop: 06/21/18 17:59 Sennosides (Senokot) 17.2 mg PO Q12H PRN PRN Reason: Moderate Constipation Allergies Allergy/AdvReac Type Severity Reaction Status Date / Time Sulfa (Sulfonamide Allergy Severe Fainting Verified 06/18/18 13:06 Antibiotics) terazosin Allergy Severe Burning Verified 06/18/18 13:06 Home Medications Medication Instructions Recorded Confirmed Type aspirin [Aspir-81] 81 mg PO DAILY 06/18/18 06/18/18 History cholecalciferol (vitamin D3) 50,000 unit PO QWEEK 06/18/18 06/18/18 History [Vitamin D3] citalopram 20 mg PO DAILY 06/18/18 06/18/18 History clopidogrel 75 mg PO DAILY 06/18/18 06/18/18 History denosumab 120 mg SUBCUT Q4W 06/18/18 06/18/18 History fenofibrate 150 mg PO DAILY 06/18/18 06/18/18 History hydrochlorothiazide 25 mg PO DAILY 06/18/18 06/18/18 History loratadine 10 mg PO DAILY 06/18/18 06/18/18 History losartan 50 mg PO DAILY 06/18/18 06/18/18 History rabeprazole 20 mg PO DAILY 06/18/18 06/18/18 History Exam Vital signs: Vital Signs 06/18/18 12:34 06/18/18 13:06 06/18/18 13:16 Temperature 98.0 F Pulse Rate 41 L 41 L Respiratory Rate 16 25 H Blood Pressure 183/77 H 162/68 H Pulse Oximetry 100 97 98 06/18/18 13:30 06/18/18 16:19 06/18/18 16:30 Temperature 98.2 F Pulse Rate 49 L 44 L Respiratory Rate 20 16 Blood Pressure 134/76 Pulse Oximetry 100 96 98 06/18/18 16:54 Temperature 98.2 F Pulse Rate 35 L Respiratory Rate Blood Pressure 134/76 Pulse Oximetry Intake & Output 06/18/18 06/18/18 06/19/18 06:59 18:59 06:59 Weight 79.379 kg Narrative: GENERAL: patient sitting up in bed. Appears comfortable. SKIN: Warm and dry. HEAD: Atraumatic. Normocephalic. EYES: Pupils equal and round. No scleral icterus. No injection or drainage. ENT: No nasal bleeding or discharge. Mucous membranes pink and moist. NECK: Trachea midline. No JVD. CARDIOVASCULAR: bradycardic. No murmurs. RESPIRATORY: No accessory muscle use. Clear to auscultation. Breath sounds equal bilaterally. GASTROINTESTINAL: Abdomen soft, non-tender, nondistended. Hepatic and splenic margins not palpable. MUSCULOSKELETAL: Extremities without clubbing, cyanosis, or edema. No obvious deformities. NEUROLOGICAL: Awake and alert. No obvious cranial nerve deficits. Motor grossly within normal limits. Five out of 5 muscle strength in the arms and legs. Normal speech. PSYCHIATRIC: Appropriate mood and affect; insight and judgment normal. Results - Labs CBC & Chem 7: 06/18/18 13:21 06/18/18 13:21 Labs: Short CBC 06/18/18 Range/Units 13:21 WBC 4.9 (4.0-11.0) th/mm3 Hgb 11.4 L (13.0-17.0) gm/dL Hct 33.8 L (39.0-51.0) % Plt Count 227 (150-450) th/mm3 BMP 06/18/18 13:21 Sodium 136 Potassium 3.6 Chloride 103 Carbon Dioxide 23.8 BUN 19 H Creatinine 0.92 Calcium 9.4 Cardiac Enzymes 06/18/18 Range/Units 13:21 Troponin I 0.02 (0.02-0.05) ng/mL Liver Function 06/18/18 Range/Units 13:21 Total Bilirubin 0.4 (0.2-1.0) mg/dL AST 19 (15-37) U/L ALT 18 (12-78) U/L Alkaline Phosphatase 22 L (45-117) U/L Albumin 3.5 (3.4-5.0) g/dL Urine 06/18/18 Range/Units 14:07 Urine Color Yellow (Yellw/Straw) Urine Clarity Clear (Clear) Urine pH 7.0 (5.0-8.5) Ur Specific [place] 1.005 (1.002-1.035) Urine Protein Negative (Neg-Trace) mg/dL Urine Glucose (UA) Negative (Negative) mg/dL - Imaging Impressions Chest X-Ray 06/18/18 13:13 CONCLUSION: No acute cardiopulmonary disease. Chest CTA 06/18/18 13:15 CONCLUSION: 1. Negative for central pulmonary emboli. Caprini VTE Risk Assessment Caprini VTE Risk Assessment: Moderate/High Risk (score >= 2) Caprini Risk Assessment Model: Point Value = 1 Point Value = 2 Point Value = 3 Point Value = 5 Age 41-60 Minor surgery BMI > 25 kg/m2 Swollen legs Varicose veins or History of unexplained or recurrent spontaneous Oral contraceptives or hormone replacement Sepsis (< 1 month) Serious lung disease, including pneumonia (< 1 month) Abnormal pulmonary function Acute myocardial infarction Congestive heart failure (< 1 month) History of inflammatory bowel disease Medical patient at bed rest Age 61-74 Arthroscopic surgery Major open surgery (> 45 min) Laparoscopic surgery (> 45 min) Malignancy Confined to bed (> 72 hours) Immobilizing plaster cast Central venous access Age >= 75 History of VTE Family history of VTE Factor V Leiden Prothrombin [id number] Lupus anticoagulant Anticardiolipin antibodies Elevated serum homocysteine Heparin-induced thrombocytopenia Other congenital or acquired thrombophilia Stroke (< 1 month) Elective arthroplasty Hip, pelvis, or leg fracture Acute spinal cord injury (< 1 month) Prophylaxis Regimen: Total Risk Factor Score Risk Level Prophylaxis Regimen 0-1 Low Early ambulation 2 Moderate Order ONE of the following: *Sequential Compression Device (SCD) *Heparin 5000 units SQ BID 3-4 Higher Order ONE of the following medications: *Heparin 5000 units SQ TID *Enoxaparin/Lovenox 40 mg SQ daily (WT < 150 kg, CrCl > 30 mL/min) *Enoxaparin/Lovenox 30 mg SQ daily (WT < 150 kg, CrCl > 10-29 mL/min) *Enoxaparin/Lovenox 30 mg SQ BID (WT < 150 kg, CrCl > 30 mL/min) AND/OR *Sequential Compression Device (SCD) 5 or more Highest Order ONE of the following medications: *Heparin 5000 units SQ TID (Preferred with Epidurals) *Enoxaparin/Lovenox 40 mg SQ daily (WT < 150 kg, CrCl > 30 mL/min) *Enoxaparin/Lovenox 30 mg SQ daily (WT < 150 kg, CrCl > 10-29 mL/min) *Enoxaparin/Lovenox 30 mg SQ BID (WT < 150 kg, CrCl > 30 mL/min) AND *Sequential Compression Device (SCD) Assessment and Plan - Plan //Complete heart block //CAD We'll continue home medications. Management as per cardiology. Patient for pacer placement tomorrow. //Hypertension. Blood pressure acceptable currently. When necessary Vasotec. Continue home medications. //Hyperlipidemia. Chronic. Continue home medications. //Metastatic prostate cancer. Follows with oncology as outpatient. Discussed Condition With: patient, nurse, ED physician.
[2018-06-19 02:08] LABS: Baso % (Auto) 0.4 % (0.0-2.0); Eos # (Auto) 0.1 th/mm3 (0.0-0.4); Eos % (Auto) 1.6 % (0.0-4.0); Hematocrit 29.8 % (39.0-51.0); Hemoglobin 10.7 gm/dL (13.0-17.0); Lymph # (Auto) 1.2 th/mm3 (1.0-4.8); Lymph % (Auto) 21.4 % (9.0-44.0); Mean Corpuscular Hemoglobin 34.8 pg (27.0-34.0); Mean Corpuscular Volume 96.7 fL (80.0-100.0); Mean Platelet Volume 10.1 fL (7.0-11.0); Mono # (Auto) 0.6 th/mm3 (0.0-0.9); Mono % (Auto) 10.8 % (0.0-8.0); Neut # (Auto) 3.6 th/mm3 (1.8-7.7); Neut % (Auto) 65.8 % (16.0-70.0); Platelet Count 203 th/mm3 (150-450); Red Blood Count 3.08 mil/mm3 (4.50-5.90); Red Cell Distribution Width 12.8 % (11.6-17.2); White Blood Count 5.5 th/mm3 (4.0-11.0)
[2018-06-19 02:14] LABS: Activated Partial Thrombo Time 23.8 sec (24.3-30.1); INR 1.1 Ratio; Prothrombin Time 11.5 sec (9.8-11.6)
[2018-06-19 02:25] LABS: Calcium 8.5 mg/dL (8.5-10.1); Carbon Dioxide 27.3 meq/L (21.0-32.0); Potassium 3.8 meq/L (3.5-5.1); Troponin I 0.02 ng/mL (0.02-0.05)
[2018-06-19 02:55] LABS: Platelet Estimate Normal (Normal); Platelet Morphology Normal (Normal)
[2018-06-19 02:56] LABS: RBC Morphology Normal (Normal)
[2018-06-19] MEDS ORDERED: Lidocaine 2% Inj 50 ML Vial ONE (07:17)
[2018-06-19] MEDS ORDERED: Sodium Chlor 0.9% Inj 250 ML ONE (07:18)
[2018-06-19] MEDS ORDERED: Phenylephrine/NS 1000 MCG/10ML Syringe IV.PUSH ONE (08:00)
[2018-06-19] MEDS ORDERED: Glycopyrrolate Inj 1 MG/5 ML Syringe IV.PUSH ONE (08:00)
[2018-06-19] MEDS ORDERED: RABEPRAZOLE 20 MG PO SCH (09:00)
[2018-06-19] MEDS: Citalopram 20 MG Tablet PO SCH (09:57)
--- NOTE | 2018-06-19 09:57 | CATHPROC ---
en-Gauge HIS Report Study Information Study Number Admission Scheduled Start Study Start [id number] Jun 18 2018 3:54PM 06/19/2018 Jun 19 2018 7:01AM [place] [facility] Cardiac Catheterization Admit Source Facility Department Other [facility] - [facility] Physician and Clinical Staff Initial MD Garces, Dylan Document Preparation Specialist Rita Mcdonough RN Other Anesthesia, DRAPERY INSPECTOR Recorder Dann Aguilar,RT(R) Scrub Anushka Luke,INSIDE SALES SPECIALIST TECH2 Procedures Performed Procedure Lead Insertion Equipment Time Rand Maker Description Size Mfg Part Number Used/Scraped [id number] MICROPUNCTURE, FR4 PEDAL 08:39 COOK/BRIGITTE FR 4 NT-U-SST Used ACCESS SET *[id number] DERMABOND, ADHESIVE SKIN [id number] 09:51 CORDIS/PACER * Used GLUE MINI *[id number] 09:32 DAVOL INC JAEL, HEMOSTAT 1 GRAM Used *[id number] 07:03 [employer] BLANKET,WARM AIR CCL * Used *[id number] TP-1103 07:03 [employer] SUTURE, STRIP PLUS 1/2" * Used *[id number] 07:03 MEDLINE PACER ADHESIVE, MASTISOL 2/3CC 2/3CC 0523-48 Used 07:03 MEDLINE PACER STEELE, LIMB * 2530 *[id number] Used [id number] 07:03 MEDLINE PACER PACK, PACER CUSTOM * Used *[id number] 07:03 MEDLINE PACER PEN, SKIN DUAL W/ RULER * Used *[id number] PROBE COVER, STERILE [id number] 07:03 [place] [facility] * Used ULTRASOUND W/ GEL *[id number] 08:36 Needle Sponge Count 2 22 Used 08:36 Needle Sponge Count 25 1 Used 08:36 Needle Sponge Count 5 5 Used [id number] *74220 8066-54 *[id number] SUTURE, 0 SILK [CT1] (CO21D), 8pk SUTURE, 3-0 MONOCRYL [SH] (Y316H) SUTURE, 3-0 MONOCRYL [SH] (Y316H) SUTURE, 4-0 MONOCRYL [PS2] (Y496G) [facility] PAD, ELECTROSURGICAL 07:03 * [id number] *[id number] Used SURGICAL GROUNDING ORANGE LEAD, CAPSURE FIX NOVUS, 4076-45CM 09:09 [employer]IT[employer]RON [employer] 45CM Used 45CM *[id number] LEAD, CAPSURE FIX NOVUS, 4076-52CM 09:06 VIT[employer]RON [employer] 52CM Used 52CM *[id number] 09:00 [employer] MONITOR, PACEMAKER\\ICD 18000 *[id number] Used 09:24 VIT[employer]RON [employer] PACEMAKER, ANNA XT DR VERDE-DDDR [id number] Used [id number] 07:03 [employer] SRINIVASAN. / * Used *62052 Equipment Model, Serial, Lot Number and Expiration Data Description Model Number Serial Number Lot Number Expiration Date LEAD, CAPSURE FIX NOVUS, 45CM 4076 [id number] 04-03-2020 LEAD, CAPSURE FIX NOVUS, 52CM 4076 [id number] 04-26-2020 PACEMAKER, ANNA XT [id number] 11-01-2019 History: Allergies Allergy Reaction Sulfa terazosin Burning Sulfa (Sulfonamide Antibiotics) Fainting History: Risk Factors Hypertension Dyslipidemia Yes Yes Prior PCI Yes Labs Hgb (g/dl) Hct (%) RBC (MIL/MM3) WBC (l/cumm) Platelets (thousands) 11.60-17.00 35.00-51.00 4.00-5.90 4.00-11.00 150.00-450.00 10.0 29 3 5.5 203 Glucose (mg/dl) BUN (mg/dl) Creatinine (mg/dl) BUN:Creatinine (1:x) 74.00-106.00 7.00-18.00 0.50-1.30 10.00-20.00 93 18 0.9 20 Na (meq/l) K (meq/l) 136.00-145.00 3.50-5.10 140 3.8 INR (PTT:PT) 0.90-1.10 1.1 Medication Medication Total Dose (Bolus/Oral) Medication Total Dosage/Unit 2% XYLOCAINE 50 mL Medications (Bolus/Oral) Medication Time Given Dosage/Unit Administered By Reason 2% XYLOCAINE 06/19/2018 8:52:59 AM 50 mL Dylan Garces 50 mL 2% XYLOCAINE given in lab by Dylan Garces in Left Arm via Subcutaneous. Ordered by Dylan Garces. left upper chest Medication (Drip) Medication Time Given Dosage/Unit Concentration/Unit Diluent (ml) Solution ANCEF 06/19/2018 8:10:52 AM 2 g 2 g ANCEF given in lab by Anesthesia, DRAPERY INSPECTOR in Right Antecubital via Peripheral IV. Ordered by Dylan Garces. IV Solutions 06/19/2018 7:57:11 AM 0 mL (IV) 500 NaCl .9 IV Solutions given in lab by Rita Mcdonough RN in Right Antecubital via Peripheral IV. Pump/Drip F low = 20 ml/hr using NaCl .9. Ordered by Dylan Garces. IV Solutions 06/19/2018 7:57:36 AM 0 mL (IV) 500 NaCl .9 IV Solutions given in lab by Rita Mcdonough RN in Left Antecubital via Peripheral IV. Pump/Drip Fl ow = 20 ml/hr using NaCl .9. Ordered by Dylan Garces. VANCOMYCIN DRIP 06/19/2018 8:35:27 AM 1 g 1 g VANCOMYCIN DRIP given in lab by Anesthesia, DRAPERY INSPECTOR in Right Antecubital via Peripheral IV. Ordered by Dylan Garces. Initial Case Assessment Cardiovascular HR NIBP Chest Pain 44 135/64 0 Edema Present Skin color Skin None Normal Warm Dry Neurological State Oriented to time-place- Alert Moves all extremities person Respiration - General SpO2 (%) 93 Final Case Assessment Cardiovascular HR Rhythm NIBP 60 ddd 126/60 Edema Present Skin color Skin None Normal Warm Dry Neurological State Lethargic Respiration - General Respiration Rate SpO2 (%) (B/min) 10 96 Chronological Log Time Study Chronological Log 7:55:44 Patient arrived via Bed. 7:55:45 Patient Name, D.O.B, / Armband Verified By R.N. 7:55:46 Consent signed by the physician and the patient and verified by the [facility] staff. 7:55:47 Pre-op and post- op instructions given; patient acknowledges understanding of instructions . 7:56:12 Verbal Stimulation=2 Physical Stimulation=2 Airway=2 Respiration=2 TOTAL=8. (0=absent, 1=kelly ited, 2=present) 7:56:25 Anesthesia at bedside. Assumes care of patient. 7:56:26 Presedation assessment performed by Mineralogy Professor RN. 7:56:27 Patient has been NPO for More than 6Hrs. 7:56:28 Skin Breakdown/none per patient 7:56:42 Patient Warmer Placed on the Table. 7:56:43 Disposable Defibrillator Pads Placed On Patient. 7:56:44 Makayla Prominences Protected 7:56:48 History and physical on the chart or being dictated. Assessment: Initial Case, HR=44 BPM, SGVH=436/64 mmhg, Chest Pain=0, Edema=None, Color=Normal, S kin = Warm, Dry 7:56:50 Neurological: State=Alert, Ox3, CR Respiration: SpO2=93 % 7:56:53 A # 20 IV was noted in the Antecubital (left). Grade = 0 7:57:04 A # 20 IV was noted in the Antecubital (right). Grade = 0 IV Solutions given in lab by Rita Mcdonough, GABRIELA in Right Antecubital via Peripheral IV. Pump/D rip Flow = 20 ml/hr 7:57:11 using NaCl .9. Ordered by Dylan Garces. IV Solutions given in lab by Rita Mcdonough, GABRIELA in Left Antecubital via Peripheral IV. Pump/Dr ip Flow = 20 ml/hr 7:57:36 using NaCl .9. Ordered by Dylan Garces. 7:57:41 all vital signs will be recorded by load tester during procedure on flowsheet 8:05:29 Dr. Anderson arrived to assist in inserting the LMA. 8:10:52 2 g ANCEF given in lab by Anesthesia, DRAPERY INSPECTOR in Right Antecubital via Peripheral IV. Ordered b Dylan Laird. 8:23:26 Left Upper Chest Prepped Times Two. 8:24:33 Reference ECG taken 8:31:17 MD notified ready 8:31:32 MD responded 8:35:12 Bovie ground pad applied to:right hip 8:35:21 2% CHLORHEXIDINE GLUCONATE WASH AND NASAL SWIPE DONE PRIOR TO PROCEDURE. First Sponge And Instrument Count Done by Anushka Luke, INSIDE SALES SPECIALIST TECH2. 8:35:25 Hypo's: 5, Sponges: 25, Bovie/scratch: 2 Sutures: 11, Blades: 2, Instruments: 26, Syveck Patches: ~SYVECK PATCH~ and Rita MBarrie 1 g VANCOMYCIN DRIP given in lab by Anesthesia, DRAPERY INSPECTOR in Right Antecubital via Peripheral IV. Ord ered by Dez, 8:35:27 Dylan. Time Out. Correct patient, procedure, procedure equipment, site and side verified with physician present. Time 8:50:36 concurred by MD, individual staff and DRAPERY INSPECTOR. Time Out #2 - Consents verified, patient in correct position, all results are labled and display ed, safety precautions 8:50:41 taken, antibiotics administered. Time out concurred by MD, individual staff and DRAPERY INSPECTOR in procedur e 8:50:51 Case Start 50 mL 2% XYLOCAINE given in lab by Dylan Garces in Left Arm via Subcutaneous. Ordered by Dylan Holley. 8:52:59 left upper chest 8:56:55 Vascular access was obtained in the Subclav. Vein (Lft. micropuncture Wire inserted and exchanged with dilator 8:57:20 new access wire inserted 9:01:03 Vascular access was obtained in the Subclav. Vein (Lft. using a micropuncture needle and wir e 9:01:53 Surgical Incision Made. left upper chest 9:02:06 A pocket was created at the L Upper Chest. 9:04:36 A sheath was advanced into the Subclav. Vein (Lft using the Martha technique. 7fr peel rosa y inserted 9:05:51 A LEAD, CAPSURE FIX NOVUS, 52CM 52CM was inserted and positioned in the RV. 9:06:28 Lead placement verified under fluoroscopy 9:08:47 A LEAD, CAPSURE FIX NOVUS, 45CM 45CM was inserted and positioned in the RA. 9:10:22 Lead placement verified under fluoroscopy 9:17:25 The RV lead was sutured to the fascia. 9:18:04 The Atrial lead impedance and threshold is being tested. 9:20:04 The RV lead impedance and threshold being tested. 9:20:17 The Atrial lead was sutured to the fascia. 9:22:46 Pocket flushed with antibiotic solution 9:23:25 A PACEMAKER, ANNA XT DR VERDE-DDDR was connected and placed in the pocket. 9:23:52 Implant Procedure was performed. 9:23:58 A PPM Implant . (Dual) Second Sponge And Instrument Count Done by Anushka Luke, INSIDE SALES SPECIALIST TECH2. 9:28:26 Hypo's: 5, Sponges: 25, Bovie/scratch: 2 Sutures: ~SUTURE~, Blades: 2, Instruments: ~INSTRU~, Syveck Patches: ~SYVECK PATCH~ and Kylie jaclyn M 9:29:00 Jael was inserted into the pocket before closing 9:29:28 The pocket was closed. 9:44:17 continuing to close pocket The Final Sponge And Instrument Count Done by Anushka Luke, INSIDE SALES SPECIALIST TECH2. 9:47:44 Hypo's: 5, Sponges: 25, Bovie/scratch: 2 Sutures: 11, Blades: 2, Instruments: 26, Syveck Patches: ~SYVECK PATCH~ and rita m 9:49:01 Case End (Physician broke scrub) 9:52:06 Bedside Report will be given. 9:52:37 Steri-strips and a sterile dressing applied to site. 9:52:41 A sling was placed on the affected arm. Assessment: Final Case, HR=60 BPM, Rhythm=ddd, QZDF=246/60 mmhg, Edema=None, Color=Normal, Skin = Warm, Dry 9:52:53 Neurological: State=Lethargic Respiration: Resp=10 B/min, SpO2=96 % 9:53:34 No case complications noted. 9:53:40 Implantable Device card placed in patient's chart. 9:57:14 Patient moved to [facility] End Study - Contrast Media Used In Study Contrast Total Opened (mL) Total Used (mL) Total Wasted (mL) Omnipaque 0 0 0 End Study - Maximum Contrast Load Max Contrast Load (mL) 438.9 End Study - Radiation Exposure Fluoro Time (minutes) 4.3 End Study - Patient Disposition Complications No
[2018-06-19] MEDS: Fenofibrate 145 MG Tablet PO SCH (09:58)
[2018-06-19] MEDS ORDERED: Acetaminophen/Codeine 300/30 MG Tablet PO PRN (10:07)
[2018-06-19] MEDS ORDERED: Acetaminophen 325 MG Tablet PO PRN (10:07)
[2018-06-19] MEDS ORDERED: fentaNYL Citrate Inj 100 MCG/2 ML Ampul ONE (10:14)
--- NOTE | 2018-06-19 10:41 | MP ---
cc: Dylan Rogers MD DATE OF OPERATION: 06/19/2018 DUAL CHAMBER PLACEMENT INDICATIONS FOR PROCEDURE: High grade AV block, complete heart block, marked dizziness, near syncope and shortness of breath. CONSENT: Full informed consent was obtained prior to procedure. The risks of , bleeding, perforation, aspiration, pneumothorax, foreseen and unforeseen complications were reviewed. The patient fully appeared to understand the risks. PROCEDURE IN DETAIL: The patient was prepped and draped in the usual manner. Left infraclavicular area was carefully infiltrated with lidocaine. Using a micropuncture technique, with ultrasound two guidewires were placed in venous circulation. Using blunt, sharp and cautery dissection, the pacemaker pocket was fashioned in the usual manner over the 2 introducer sheaths. Two pacemaker wires were passed for venous circulation. The RV lead was passed to the right ventricular apex and the helical screw advanced. The right atrial wire was placed in the right atrial appendage and the helical screw advanced. Excellent pacing and sensing parameters were noted in both chambers. Both leads were sewn down to pectoralis fascia. Both leads were connected to respective chambers of the pulse generator and the pulse generator set screws tied, but not overtightened. The pulse generator was then placed in the pocket and sewn down to the pectoralis fascia using silk. The pocket was then flushed with vancomycin solution and the pocket was closed in 3 layers. Hemostatic powder was used as there was some oozing noted. CONCLUSION: Successful placement of a dual-chamber pacemaker for high-grade AV block. PLAN: We will plan to discharge the patient in the a.m. We will plan to do a chest x-ray to rule out pneumothorax as soon as possible. MD BAO Fernandes/ty , 09:54 AM , 10:00 AM GÉNESIS
--- NOTE | 2018-06-19 11:08 | XR ---
EXAM DATE: 06/19/2018 12:00 AM EDT AGE/SEX: 83 years / Male INDICATIONS: Post pacemaker. Evaluate for pneumothorax. CLINICAL DATA: This is the patient's initial encounter. Patient reports that signs and symptoms have been present for 1 day and indicates a pain score of Nonresponsive. MEDICAL/SURGICAL HISTORY: . Hypertension. Cardiovascular disease . COMPARISON: C, CHEST 1V SINGLE AP, 06/18/2018. . FINDINGS: The heart is stable. Left subclavian dual lead pacemaker has its tips in the right heart. There is no pneumothorax. The pulmonary vascular pattern is normal. The lungs are clear. CONCLUSION: No pneumothorax status post placement of left subclavian dual lead pacemaker which has its tips in th e right heart. Electronically signed by: Scotty Dawson MD 06/19/2018 11:07 AM EDT
--- NOTE | 2018-06-19 14:56 | P.PNIM ---
Subjective Interval history: patient feeling a litle groggy after surgery. denies SOB. feels like going home tomorrow. Physical Exam Vital signs: Vital Signs 06/18/18 16:19 06/18/18 16:30 06/18/18 16:54 Temperature 98.2 F 98.2 F Pulse Rate 49 L 44 L 35 L Respiratory Rate 20 16 Blood Pressure 134/76 134/76 Pulse Oximetry 96 98 06/18/18 20:00 06/18/18 21:00 06/18/18 21:18 Temperature 97.4 F L 97.4 F L Pulse Rate 45 L 41 L Respiratory Rate 16 16 Blood Pressure 134/70 134/70 Pulse Oximetry 100 98 98 06/18/18 22:00 06/18/18 23:00 06/18/18 23:31 Temperature 98 F Pulse Rate 38 L 42 L 52 L Respiratory Rate 16 Blood Pressure 145/63 H Pulse Oximetry 98 06/19/18 00:00 06/19/18 01:00 06/19/18 02:00 Temperature 98 F Pulse Rate 35 L 52 L 43 L Respiratory Rate 16 Blood Pressure 145/63 H Pulse Oximetry 98 06/19/18 03:00 06/19/18 04:00 06/19/18 05:00 Temperature 98 F 98 F Pulse Rate 35 L 38 L 38 L Respiratory Rate 16 16 Blood Pressure 145/63 H 145/63 H Pulse Oximetry 98 98 06/19/18 06:00 06/19/18 07:00 06/19/18 07:30 Temperature Pulse Rate 44 L 37 L 37 L Respiratory Rate 17 Blood Pressure 162/70 H Pulse Oximetry 99 06/19/18 10:30 06/19/18 11:00 06/19/18 11:15 Temperature 98.0 F 98.0 F 98 F Pulse Rate 63 60 60 Respiratory Rate 16 14 14 Blood Pressure 170/70 H 164/71 H 172/72 H Pulse Oximetry 100 94 L 95 06/19/18 12:00 06/19/18 13:00 06/19/18 14:00 Temperature 98 F Pulse Rate 60 60 60 Respiratory Rate 16 Blood Pressure 156/70 H Pulse Oximetry 94 L Intake & Output 06/18/18 06/19/18 06/19/18 18:59 06:59 18:59 Intake Total 0 / 0 250 / 250 Output Total 350 / 350 Balance -350 / -350 250 / 250 Weight 79.379 kg 79 kg Intake: IV 250 / 250 Vancomycin Inj 1,000 MG In NS 250 / 250 Inj 250 ML @ 250 mls/hr IV.SIG 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 HEAD: Normocephalic. EYES: No scleral icterus. No injection or drainage. NECK: Supple, trachea midline. No JVD or lymphadenopathy. CARDIOVASCULAR: Regular rate and rhythm without murmurs, gallops, or rubs. RESPIRATORY: Breath sounds equal bilaterally. No accessory muscle use. GASTROINTESTINAL: Abdomen soft, non-tender, nondistended. dressing CDI L upper chest. MUSCULOSKELETAL: No cyanosis, or edema. BACK: Nontender without obvious deformity. No CVA tenderness. Results - Labs CBC & Chem 7: 06/19/18 01:43 06/19/18 01:43 Laboratory Results - last 24 hr 06/18/18 06/18/18 06/19/18 13:21 19:52 01:43 WBC RBC Hgb Hct MCV MCH MCHC RDW Plt Count MPV Prelim Diff (Auto) Neut % (Auto) Lymph % (Auto) [place] % (Auto) Eos % (Auto) Baso % (Auto) Neut # (Auto) Lymph # (Auto) [place] # (Auto) Eos # (Auto) Baso # (Auto) WBC Differential Diff Scan Differential Comment Platelet Estimate Platelet Morphology RBC Morphology PT INR APTT Sodium 140 Potassium 3.8 Chloride 105 Carbon Dioxide 27.3 Anion Gap 8 BUN 18 Creatinine 0.91 Estimated GFR 79 L Random Glucose 93 Calcium 8.5 D Troponin I 0.02 0.02 B-Natriuretic Peptide 492 H 06/19/18 06/19/18 01:43 01:43 WBC 5.5 RBC 3.08 L Hgb 10.7 L Hct 29.8 L MCV 96.7 MCH 34.8 H MCHC 36.0 RDW 12.8 Plt Count 203 MPV 10.1 Prelim Diff (Auto) Slide review pending Neut % (Auto) 65.8 Lymph % (Auto) 21.4 [place] % (Auto) 10.8 H Eos % (Auto) 1.6 Baso % (Auto) 0.4 Neut # (Auto) 3.6 Lymph # (Auto) 1.2 [place] # (Auto) 0.6 Eos # (Auto) 0.1 Baso # (Auto) 0.0 WBC Differential . Diff Scan Auto diff confirmed Differential Comment . Platelet Estimate Normal Platelet Morphology Normal RBC Morphology Normal PT 11.5 INR 1.1 APTT 23.8 L Sodium Potassium Chloride Carbon Dioxide Anion Gap BUN Creatinine Estimated GFR Random Glucose Calcium Troponin I B-Natriuretic Peptide - Imaging Impressions Chest CTA 06/18/18 13:15 CONCLUSION: 1. Negative for central pulmonary emboli. Chest X-Ray 06/19/18 00:00 CONCLUSION: No pneumothorax status post placement of left subclavian dual lead pacemaker which has its tips in the right heart. Assessment and Plan - Plan //Complete heart block //CAD We'll continue home medications. Management as per cardiology. Patient for pacer placement tomorrow. = Status post pacer placement. Patient cardiology assistance. Discharge tomorrow if stable. //Hypertension. Blood pressure acceptable. cont When necessary Vasotec. Continue home medications. //Hyperlipidemia. Chronic. Continue home medications. //Metastatic prostate cancer. Follows with oncology as outpatient. Discharge Planning: Discharge tomorrow if stable and cleared by cardiology.
[2018-06-19] MEDS: ceFAZolin 2 GM Premix Inj 2 GM/50 ML PIGGYBACK IV.SIG SCH ×2 (16:01→23:01)
[2018-06-19] MEDS: Sod Chloride 0.9% Inj 1,000 ML IV.CONT SCH (17:20)
--- NOTE | 2018-06-19 17:52 | ECG ---
Date Performed: 06/18/2018 Time Performed: 13:45:05 PTAGE: 83 years EKG: Sinus rhythm WITH HIGH GRADE AV BLOCK RIGHT BUNDLE BRANCH BLOCK Compared to previous tracing, sinsus bradycardia with 3rd degree heart block and occasional ventricular escape beats is new Clinical correlation is re commended ABNORMAL ECG NO PREVIOUS TRACING DOCTOR: Ab Meyer Interpretating Date/Time 06/19/2018 17:51:37
--- NOTE | 2018-06-19 17:54 | ECG ---
Date Performed: 06/19/2018 Time Performed: 10:34:40 PTAGE: 83 years EKG: ELECTRONIC ATRIAL PACEMAKER ELECTRONIC VENTRICULAR PACEMAKER Compared to previous tracing, a pacemaker is present ABNORMAL RHYTHM ECG PREVIOUS TRACING : 06/19/2018 06.19 DOCTOR: Ab Meyer Interpretating Date/Time 06/19/2018 17:53:26
--- NOTE | 2018-06-19 17:54 | ECG ---
Date Performed: 06/19/2018 Time Performed: 06:19:34 PTAGE: 83 years EKG: Sinus bradycardia with sinus arrhythmia with Mobitz 1 A-V block. 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
--- NOTE | 2018-06-19 17:54 | ECG ---
Date Performed: 06/18/2018 Time Performed: 22:14:42 PTAGE: 83 years EKG: Marked sinus bradycardia with third degree heart block Right bundle branch block Since the previous tracing, no significant change noted Abnormal ECG PREVIOUS TRACING : 06/18/2018 13.45 DOCTOR: Ab Meyer Interpretating Date/Time 06/19/2018 17:52:03
[2018-06-20 03:31] VITALS: O2SAT 98
[2018-06-20 07:55] VITALS: RESP 12
--- NOTE | 2018-06-20 08:29 | P.DS ---
Date of admission: 06/18/18 15:54 Primary care physician: Holland Loza MD Brief History from admission: 83-year-old male with a history of coronary artery disease with stenting, metastatic prostate cancer on hormone therapy, hyperlipidemia, V. tach, right bundle branch block, hypertension who presents with a 2 day history of fatigue, shortness of breath with exertion. He denies any chest pain. He denies any fevers, chills, chest pain, shortness of breath. He does report some loose bowel movements which she has attributed to recent vitamin D therapy. family history reviewed and found to be currently noncontributory. DS: Summary Hospital Course: Patient was monitored on telemetry due to bradycardia. Patient underwent pacer placement by cardiology. Subsequent vital signs stable, patient feeling well. Patient is discharged home to follow-up with cardiology as outpatient. Post procedural instructions as per cardiology. For problem based summary from most recent progress note, please see below. //Complete heart block //CAD We'll continue home medications. Management as per cardiology. Patient for pacer placement tomorrow. = Status post pacer placement. Patient cardiology assistance. Discharge tomorrow if stable. = 06/20. Patient feeling well. Blood pressure stable. Discharge today when cleared by cardiology. //Hypertension. Blood pressure acceptable. cont When necessary Vasotec. Continue home medications. //Hyperlipidemia. Chronic. Continue home medications. //Metastatic prostate cancer. Follows with oncology as outpatient. Discharge Planning: Discharge today when cleared by cardiology. - Time Spent with Patient Total time spent providing and/or coordinating discharge services: Less than 30 minutes Exam Vital signs: Vital Signs 06/19/18 10:30 06/19/18 11:00 06/19/18 11:15 Temperature 98.0 F 98.0 F 98 F Pulse Rate 63 60 60 Respiratory Rate 16 14 14 Blood Pressure 170/70 H 164/71 H 172/72 H Pulse Oximetry 100 94 L 95 06/19/18 12:00 06/19/18 13:00 06/19/18 14:00 Temperature 98 F Pulse Rate 60 60 60 Respiratory Rate 16 Blood Pressure 156/70 H Pulse Oximetry 94 L 06/19/18 15:00 06/19/18 16:00 06/19/18 17:00 Temperature 98.1 F Pulse Rate 59 L 60 59 L Respiratory Rate 16 Blood Pressure 138/60 Pulse Oximetry 99 06/19/18 17:35 06/19/18 18:00 06/19/18 19:00 Temperature 97.5 F L Pulse Rate 59 L 60 Respiratory Rate 16 Blood Pressure 165/72 H Pulse Oximetry 99 98 06/19/18 20:00 06/19/18 21:00 06/19/18 22:00 Temperature Pulse Rate 68 62 60 Respiratory Rate Blood Pressure Pulse Oximetry 98 06/19/18 23:00 06/20/18 00:00 06/20/18 00:09 Temperature 97.7 F Pulse Rate 94 H 65 Respiratory Rate 16 Blood Pressure 167/72 H 152/67 H Pulse Oximetry 97 06/20/18 01:00 06/20/18 02:00 06/20/18 03:00 Temperature 98.1 F Pulse Rate 64 62 66 Respiratory Rate 20 Blood Pressure 145/67 H Pulse Oximetry 98 06/20/18 04:00 06/20/18 05:00 06/20/18 06:00 Temperature Pulse Rate 63 67 65 Respiratory Rate Blood Pressure Pulse Oximetry 06/20/18 07:00 06/20/18 07:30 06/20/18 08:05 Temperature 97.5 F L Pulse Rate 89 63 Respiratory Rate 12 Blood Pressure 92/64 L 141/63 H Pulse Oximetry 98 98 Intake & Output 06/19/18 06/20/18 06/20/18 18:59 06:59 18:59 Intake Total 1110 / 1110 290 / 290 Output Total 450 / 450 550 / 550 325 / 325 Balance 660 / 660 -260 / -260 -325 / -325 Weight 80.5 kg Intake: IV 300 / 300 50 / 50 Vancomycin Inj 1,000 MG In NS 250 / 250 Inj 250 ML @ 250 mls/hr IV.SIG [employer] [facility] Rx#:[id number] Ancef 2 GM Premix Inj 2 gm In 50 / 50 50 / 50 50 ml @ 100 mls/hr IV.SIG Q8H [facility] Rx#:[id number] Oral 810 / 810 240 / 240 Output: Urine 450 / 450 550 / 550 325 / 325 Other: Date of Last Bowel Movement 06/18/18 Results Procedures completed during hospitalization: Pacer placement. Please see report. - Impressions ITS Impressions Chest CTA 06/18/18 13:15 CONCLUSION: 1. Negative for central pulmonary emboli. Chest X-Ray 06/19/18 00:00 CONCLUSION: No pneumothorax status post placement of left subclavian dual lead pacemaker which has its tips in the right heart. Discharge Plan - Discharge Disposition Patient Disposition: 01 Discharge Home - Discharge Condition Condition: Good - Discharge Order Discharge Orders: Discharge Order (Routine); Ordered 06/20/18 Ordered By: Samm Lester - Discharge Details Anticipated Discharge Date: 06/20/18 Discharge Comment: discharge when cleared by cardiology. - Physicians Team Primary Care Provider: Holland Loza Attending Provider: Samm Lester Other Providers: Dylan Garces MD
[2018-06-20] MEDS: Fenofibrate 145 MG Tablet PO SCH (10:20)
[2018-06-20] MEDS: Citalopram 20 MG Tablet PO SCH (10:21)
[2018-06-20 11:42] VITALS: BP 143/64; TEMP 97.6
[2018-06-20 12:46] VITALS: PULSE 12
== END 2018-06-20 12:39 | disposition home or self-care (01) ==
LOC: NEPE 12:19 → NEDA 15:54 → HCPC 16:30
PROVIDERS: ADMIT Internal Medicine; ATTEND Internal Medicine